=== PATIENT | female | born 1990 | race Two or more races ===

== ENCOUNTER 2016-04-12 11:52 | Emergency (ER) | payer MEDICAID, OTHER ==
[2016-04-12] MEDS ORDERED: NS 1,000 ML IV ONE (12:10)
[2016-04-12 12:13] VITALS: TEMP 98.2
[2016-04-12 12:30] LABS: COLOR YELLOW; LEUKOCYTE ESTERASE,URINE NEGATIVE (NEGATIVE); NITRITE,URINE NEGATIVE (NEGATIVE); PH,URINE 6.5 (5.0-7.5)
[2016-04-12] MEDS ORDERED: KETOROLAC 30 MG/1 ML SDV IVP ONE (12:52)
--- NOTE | 2016-04-12 12:57 | EDPHY ---
H & P Chief Complaint Nursing Narrative: Pt had sharp pain in rigth groin area while doing "[employer] " yesterday . It went away after the class . Today while at " [employer] " class had the same pain . Here now for recheck. Denies f/c Time Seen by Provider: 04/12/16 12:45 HPI/ROS: HPI: 25-year-old female presents to urgent care with chief concern 8/10 right groin pain. Onset yesterday morning while she was at [employer] dancing. By yesterday evening it had subsided and she was comfortable without any pain at bedtime. Awoke this morning with mild right groin pain lingering, went back to [employer] and pain returned. Pain is 8/10, worse with movement, without associated fever, chills, URI symptoms, shortness of breath, chest pain, abdominal pain, nausea, vomiting, diarrhea, urinary symptoms, back or flank pain. Has had an IUD x3 years. LMP 3 years ago. No recent vulvovaginal lesions , or unusual vaginal discharge. Patient at [facility] in [facility]. ROS:10 point review of systems is negative other than as stated in HPI Source: Patient Exam Limitations: No limitations - Personal History LMP (Females 10-55): IUD In Place - Medical/Surgical History Hx Asthma: No Hx Chronic Respiratory Disease: No Hx Diabetes: No Hx Cardiac Disease: No Hx Renal Disease: No Hx Cirrhosis: No Hx Alcoholism: No Hx HIV/AIDS: No Hx Splenectomy or Spleen Trauma: No Other PMH: [facility]. Tetanus UTD. Flu NONE. Surg Csecton 2012 - Family History Significant Family History: No pertinent family hx - Social History Smoking Status: Never smoked Alcohol Use: Occasionally Drug Use: None - Physical Exam Exam: Vital signs stable, reviewed by me General: Awake, alert, calm, cooperative. No acute distress. Head: Normalocephalic. Atraumatic. EENT: PERRLA. EOMI. No pallor or injection. Anicteric. No nystagmus. No injection. Neck: Supple, nontender. No lymphadenopathy. Full range of motion. No meningismus. Respiratory: Breathing unlabored. Breath sounds equal bilaterally and clear to auscultation. No adventitious sounds. CV: Chest nontender, atraumatic. Heart rate regular. No murmur, distal pulses 2+ bilaterally. Brisk cap refill all extremities. GI: Abdomen soft, nontender. No right lower quadrant tenderness. No rebound. No guarding. PositiveMarkel. Bowel sounds normoactive and positive x4 quadrants. : No suprapubic tenderness. No CVA or flank tenderness. Positive right groin pain. Neuro: Alert. Oriented x 3. Speech clear. Nonfocal cranial nerves throughout. Sensation intact all extremities. Skin: Skin warm, dry, intact. No rashes. Skin turgor normal. Extremities: Full range of motion in all 4 extremities. Strength 5+ all extremities. Constitutional: Initial Vital Signs Temperature (C) 36.8 C 04/12/16 12:09 Heart Rate 78 04/12/16 12:09 Respiratory Rate 16 04/12/16 12:09 Blood Pressure 114/72 04/12/16 12:09 O2 Sat (%) 96 04/12/16 12:09 O2 Delivery Mode Room Air Allergies/Adverse Reactions: No Known Allergies Allergy (Verified 04/12/16 12:13) Home Medications: Medication Instructions Recorded Miscellaneous Medical Supply [NO 01/17/13 HOME MEDS] Medical Decision Making - Diagnostics Imaging: Ultrasound Pelvis Complete (Transabdominal and Endovaginal) Including Duplex/ Doppler Imaging History: Right lower quadrant pain. Impression: 1. IUD appears in good position. 2. Normal right ovary. 3. Left ovarian 2.2 cm simple cyst or dominant follicle. 4. No ovarian torsion or significant free fluid. Final report concurs with initial preliminary interpretation. Dictated By: Sivakumar Coronado Ultrasound Abdominal Limited at 1308 Hours History: Right lower quadrant pain, possible appendicitis. Impression: No indirect sonographic evidence for appendicitis. Final report concurs with initial preliminary interpretation. Dictated By: Sivakumar Coronado ED Course/Re-evaluation: 1250: Nontoxic afebrile 25-year-old presents to urgent care with right groin pain that onset suddenly while she was in 0 class. She is afebrile. Vitals are stable. Urinalysis is negative for evidence of UTI. Urine preg negative. Has an IUD in place. Labs are pending. Abdomen limited and pelvic complete ultrasound are pending. Given 30 mg IV Toradol for pain. 1340: Ultrasound shows normal right ovary, no torsion. Appendix not visualized however there is no free fluid in the pelvis. Prominent Left ovarian cyst or follicle present. This patient's white count is 9700. Metabolic panel unremarkable. Urinalysis negative. Urine preg negative. Her symptoms are suspicious for right groin strain versus appendicitis. Pain is localized to the right groin. Will have her recheck either here or with primary care tomorrow. This has been discussed with her. She verbalizes understanding. She has been counseled regarding signs appendicitis and need for prompt return here or to emergency department should her symptoms worsen in any way, should she develop a fever, vomiting, or other concerning symptoms. Differential Diagnosis: Differential diagnosis includes but is not limited to musculoskeletal groin strain , ovarian torsion, appendicitis, UTI, IUD malfunction - Data Points Laboratory Results: Laboratory Results 04/12/16 13:05 04/12/16 13:05 04/12/16 04/12/16 13:05 12:20 WBC 9.77 H 10^3/uL (3.80-9.50) RBC 4.56 10^6/uL (4.18-5.33) Hgb 13.8 g/dL (12.6-16.3) Hct 41.1 % (38.0-47.0) MCV 90.1 fL (81.5-99.8) MCH 30.3 pg (27.9-34.1) MCHC 33.6 g/dL (32.4-36.7) RDW 14.0 % (11.5-15.2) Plt Count 269 10^3/uL (150-400) MPV 10.0 fL (8.7-11.7) Neut % (Auto) 62.6 % (39.3-74.2) Lymph % (Auto) 28.6 % (15.0-45.0) [place] % (Auto) 6.4 % (4.5-13.0) Eos % (Auto) 1.5 % (0.6-7.6) Baso % (Auto) 0.4 % (0.3-1.7) Nucleat RBC Rel Count 0.0 % (0.0-0.2) Absolute Neuts (auto) 6.11 10^3/uL (1.70-6.50) Absolute Lymphs (auto) 2.79 10^3/uL (1.00-3.00) Absolute Monos (auto) 0.63 10^3/uL (0.30-0.80) Absolute Eos (auto) 0.15 10^3/uL (0.03-0.40) Absolute Basos (auto) 0.04 10^3/uL (0.02-0.10) Absolute Nucleated RBC 0.00 10^3/uL (0-0.01) Immature Gran % 0.5 % (0.0-1.1) Immature Gran # 0.05 10^3/uL (0.00-0.10) Sodium 139 mEq/L (134-144) Potassium 4.0 mEq/L (3.5-5.2) Chloride 99 mEq/L (97-110) Carbon Dioxide 27 mEq/l (22-31) Anion Gap 13 mEq/L (8-16) BUN 10 mg/dL (7-23) Creatinine 0.7 mg/dL (0.6-1.0) Estimated GFR > 60 Glucose 87 mg/dL (70-100) Calcium 9.3 mg/dL (8.5-10.4) Urine Color YELLOW Urine Appearance CLEAR Urine pH 6.5 (5.0-7.5) Ur Specific [place] 1.010 (1.002-1.030) Urine Protein NEGATIVE (NEGATIVE) Urine Ketones NEGATIVE (NEGATIVE) Urine Blood NEGATIVE (NEGATIVE) Urine Nitrate NEGATIVE (NEGATIVE) Urine Bilirubin NEGATIVE (NEGATIVE) Urine Urobilinogen 0.2 EU (0.2-1.0) Ur Leukocyte Esterase NEGATIVE (NEGATIVE) Ur Culture Indicated? NOT INDICATED (NI) Urine Glucose NEGATIVE (NEGATIVE) Urine Test NEGATIVE Medications Given: Discontinued Medications Sodium Chloride (Ns) 1,000 mls @ 0 mls/hr IV ONCE ONE PRN Reason: Wide Open Stop: 04/12/16 12:11 Last Admin: 04/12/16 13:41 Dose: 1,000 mls Ketorolac Tromethamine (Toradol) 30 mg IVP EDNOW ONE Stop: 04/12/16 12:53 Last Admin: 04/12/16 13:41 Dose: 30 mg Departure - Departure Disposition: Home, Routine, Self-Care Clinical Impression: Right groin pain Condition: Good Instructions: Groin Pain (ED) Additional Instructions: Plan: As discussed, your ultrasound shows a normal right ovary. There is evidence of possible left ovarian cyst versus prominent follicle. IUD is in place. It seems likely your symptoms do represent a musculoskeletal strain of the right groin however appendicitis cannot entirely be excluded without a CT scan. At this time, we will discharge to home, and have a follow-up with primary care tomorrow without fail for recheck. If he cannot get in to see her primary care provider tomorrow, return here for recheck without fail. You may use 600 mg of ibuprofen every 6 hours for fever, inflammation, or pain. Always take ibuprofen with food and stay well hydrated while taking. Do not exceed the maximum allowable dose in a 24 hour period which is 2400 mg. You may use 1000 mg of Tylenol every 8 hours. This may be staggered with the ibuprofen. Do not exceed the maximum dose in a 24 hour period which is 3 GM or 3000 mg. Referrals: IN STATE,. [Primary Care Provider] - As per Instructions [facility] [Outside] - As per Instructions
[2016-04-12 13:07] LABS: % IMMATURE GRANULYOCYTES 0.5 % (0.0-1.1); ABSOLUTE IMMATURE GRANULOCYTES 0.05 10^3/uL (0.00-0.10); ADD DIFF? NO; ADD MORPH? NO; ADD SCAN? NO; ATYPICAL LYMPHOCYTE FLAG 50 (0-99); FRAGMENT RBC FLAG 0 (0-99); HEMATOCRIT 41.1 % (38.0-47.0); HEMOGLOBIN 13.8 g/dL (12.6-16.3); LEFT SHIFT FLG 0 (0-99); LIPEMIA HEMOLYSIS FLAG 80 (0-99); MEAN CELL HEMOGLOBIN 30.3 pg (27.9-34.1); MEAN CELL HEMOGLOBIN CONCENTR. 33.6 g/dL (32.4-36.7); MEAN CELL VOLUME 90.1 fL (81.5-99.8); PLATELET CLUMPS FLAG 0 (0-99); PLATELET COUNT 269 10^3/uL (150-400); RED BLOOD CELL COUNT 4.56 10^6/uL (4.18-5.33)
[2016-04-12 13:31] LABS: ANION GAP 13 mEq/L (8-16); CALCIUM 9.3 mg/dL (8.5-10.4); CARBON DIOXIDE 27 mEq/l (22-31); CHLORIDE 99 mEq/L (97-110); CREATININE 0.7 mg/dL (0.6-1.0); GLOMERULAR FILTRATION RATE > 60; GLUCOSE 87 mg/dL (70-100); SODIUM 139 mEq/L (134-144)
--- NOTE | 2016-04-12 13:36 | US ---
Ultrasound Abdominal Limited at 1308 Hours History: Right lower quadrant pain, possible appendicitis. Technique: Graded compression with a high-frequency linear transducer. Findings: A normal appendix is not identified. There is no free fluid or loculated fluid. Only normal loops of bowel are identified. Impression: No indirect sonographic evidence for appendicitis. Findings discussed with emergency department certified nurse practitioner, Yasemin Hay, at 1333 hours , today. Final report concurs with initial preliminary interpretation.
--- NOTE | 2016-04-12 13:38 | US ---
Ultrasound Pelvis Complete (Transabdominal and Endovaginal) Including Duplex/Doppler Imaging History: Right lower quadrant pain. Technique: Transabdominal and endovaginal ultrasound images were obtained. Endovaginal images obtain ed for better evaluation of the uterine myometrium and adnexa. Duplex/Doppler imaging of adnexa. Findings: Uterus measures 7 x 4 x 5 cm. Endometrial thickness is 4 mm. No definite uterine leiomyoma ta. Right ovary measures 2.4 x 2.2 x 2 cm. Left ovary measures 3.4 x 2.3 x 3.1 cm. IUD appears in good po sition. Left ovarian 2.2 x 2.1 x 1.7 cm simple cyst or dominant follicle. No evidence of right adnexa l lesions. No significant free fluid in the pelvis. Color Doppler flow to both ovaries without torsi on. Impression: 1. IUD appears in good position. 2. Normal right ovary. 3. Left ovarian 2.2 cm simple cyst or dominant follicle. 4. No ovarian torsion or significant free fluid. Findings discussed with emergency department certified nurse practitioner, Yasemin Hay, at 1334 hours , today. Final report concurs with initial preliminary interpretation.
[2016-04-12 14:08] VITALS: BP 122/74; PULSE 79; RESP 18; O2SAT 97
--- NOTE | 2016-04-12 14:59 | UCPHY ---
H & P Time Seen by Provider: 04/12/16 12:45 Patient Type: Established HPI/ROS: H & P Chief Complaint Nursing Narrative: Pt had sharp pain in rigth groin area while doing "[employer] " yesterday . It went away after the class . Today while at " [employer] " class had the same pain . Here now for recheck. Denies f/c Time Seen by Provider: 04/12/16 12:45 HPI/ROS: HPI: 25-year-old female presents to urgent care with chief concern 8/10 right groin pain. Onset yesterday morning while she was at [employer] dancing. By yesterday evening it had subsided and she was comfortable without any pain at bedtime. Awoke this morning with mild right groin pain lingering, went back to [employer] class and pain returned. Pain is 8/10, worse with movement, without associated fever, chills, URI symptoms, shortness of breath, chest pain, abdominal pain, nausea, vomiting, diarrhea, urinary symptoms, back or flank pain. Has had an IUD x3 years. LMP 3 years ago. No recent vulvovaginal lesions , or unusual vaginal discharge. Patient at [facility] in [facility]. ROS:10 point review of systems is negative other than as stated in HPI Source: Patient Exam Limitations: No limitations - Personal History LMP (Females 10-55): IUD In Place - Medical/Surgical History Hx Asthma: No Hx Chronic Respiratory Disease: No Hx Diabetes: No Hx Cardiac Disease: No Hx Renal Disease: No Hx Cirrhosis: No Hx Alcoholism: No Hx HIV/AIDS: No Hx Splenectomy or Spleen Trauma: No Other PMH: [facility]. Tetanus UTD. Flu NONE. Surg Csect[place] 2012 - Family History Significant Family History: No pertinent family hx - Social History Smoking Status: Never smoked Alcohol Use: Occasionally Drug Use: None - Physical Exam Exam: Vital signs stable, reviewed by me General: Awake, alert, calm, cooperative. No acute distress. Head: Normalocephalic. Atraumatic. EENT: PERRLA. EOMI. No pallor or injection. Anicteric. No nystagmus. No injection. Neck: Supple, nontender. No lymphadenopathy. Full range of motion. No meningismus. Respiratory: Breathing unlabored. Breath sounds equal bilaterally and clear to auscultation. No adventitious sounds. CV: Chest nontender, atraumatic. Heart rate regular. No murmur, distal pulses 2+ bilaterally. Brisk cap refill all extremities. GI: Abdomen soft, nontender. No right lower quadrant tenderness. No rebound. No guarding. PositiveMarkel. Bowel sounds normoactive and positive x4 quadrants. : No suprapubic tenderness. No CVA or flank tenderness. Positive right groin pain. Neuro: Alert. Oriented x 3. Speech clear. Nonfocal cranial nerves throughout. Sensation intact all extremities. Skin: Skin warm, dry, intact. No rashes. Skin turgor normal. Extremities: Full range of motion in all 4 extremities. Strength 5+ all extremities. Constitutional: Initial Vital Signs Temperature (C) 36.8 C 04/12/16 12:09 Heart Rate 78 04/12/16 12:09 Respiratory Rate 16 04/12/16 12:09 Blood Pressure 114/72 04/12/16 12:09 O2 Sat (%) 96 04/12/16 12:09 O2 Delivery Mode Room Air Allergies/Adverse Reactions: No Known Allergies Allergy (Verified 04/12/16 12:13) Home Medications: Medication Instructions Recorded Miscellaneous Medical Supply [NO 01/17/13 HOME MEDS] Medical Decision Making - Diagnostics Imaging: Ultrasound Pelvis Complete (Transabdominal and Endovaginal) Including Duplex/ Doppler Imaging History: Right lower quadrant pain. Impression: 1. IUD appears in good position. 2. Normal right ovary. 3. Left ovarian 2.2 cm simple cyst or dominant follicle. 4. No ovarian torsion or significant free fluid. Final report concurs with initial preliminary interpretation. Dictated By: Sivakumar Coronado Ultrasound Abdominal Limited at 1308 Hours History: Right lower quadrant pain, possible appendicitis. Impression: No indirect sonographic evidence for appendicitis. Final report concurs with initial preliminary interpretation. Dictated By: Sivakumar Coronado ED Course/Re-evaluation: 1250: Nontoxic afebrile 25-year-old presents to urgent care with right groin pain that onset suddenly while she was in 0 class. She is afebrile. Vitals are stable. Urinalysis is negative for evidence of UTI. Urine preg negative. Has an IUD in place. Labs are pending. Abdomen limited and pelvic complete ultrasound are pending. Given 30 mg IV Toradol for pain. 1340: Ultrasound shows normal right ovary, no torsion. Appendix not visualized however there is no free fluid in the pelvis. Prominent Left ovarian cyst or follicle present. This patient's white count is 9700. Metabolic panel unremarkable. Urinalysis negative. Urine preg negative. Her symptoms are suspicious for right groin strain versus appendicitis. Pain is localized to the right groin. Will have her recheck either here or with primary care tomorrow. This has been discussed with her. She verbalizes understanding. She has been counseled regarding signs appendicitis and need for prompt return here or to emergency department should her symptoms worsen in any way, should she develop a fever, vomiting, or other concerning symptoms. Differential Diagnosis: Differential diagnosis includes but is not limited to musculoskeletal groin strain , ovarian torsion, appendicitis, UTI, IUD malfunction - Data Points Laboratory Results: Laboratory Results 04/12/16 13:05 [Image 1] 04/12/16 13:05 [Image 1] 04/12/16 04/12/16 13:05 12:20 WBC 9.77 H 10^3/uL (3.80-9.50) RBC 4.56 10^6/uL (4.18-5.33) Hgb 13.8 g/dL (12.6-16.3) Hct 41.1 % (38.0-47.0) MCV 90.1 fL (81.5-99.8) MCH 30.3 pg (27.9-34.1) MCHC 33.6 g/dL (32.4-36.7) RDW 14.0 % (11.5-15.2) Plt Count 269 10^3/uL (150-400) MPV 10.0 fL (8.7-11.7) Neut % (Auto) 62.6 % (39.3-74.2) Lymph % (Auto) 28.6 % (15.0-45.0) [place] % (Auto) 6.4 % (4.5-13.0) Eos % (Auto) 1.5 % (0.6-7.6) Baso % (Auto) 0.4 % (0.3-1.7) Nucleat RBC Rel Count 0.0 % (0.0-0.2) Absolute Neuts (auto) 6.11 10^3/uL (1.70-6.50) Absolute Lymphs (auto) 2.79 10^3/uL (1.00-3.00) Absolute Monos (auto) 0.63 10^3/uL (0.30-0.80) Absolute Eos (auto) 0.15 10^3/uL (0.03-0.40) Absolute Basos (auto) 0.04 10^3/uL (0.02-0.10) Absolute Nucleated RBC 0.00 10^3/uL (0-0.01) Immature Gran % 0.5 % (0.0-1.1) Immature Gran # 0.05 10^3/uL (0.00-0.10) Sodium 139 mEq/L (134-144) Potassium 4.0 mEq/L (3.5-5.2) Chloride 99 mEq/L (97-110) Carbon Dioxide 27 mEq/l (22-31) Anion Gap 13 mEq/L (8-16) BUN 10 mg/dL (7-23) Creatinine 0.7 mg/dL (0.6-1.0) Estimated GFR > 60 Glucose 87 mg/dL (70-100) Calcium 9.3 mg/dL (8.5-10.4) Urine Color YELLOW Urine Appearance CLEAR Urine pH 6.5 (5.0-7.5) Ur Specific [place] 1.010 (1.002-1.030) Urine Protein NEGATIVE (NEGATIVE) Urine Ketones NEGATIVE (NEGATIVE) Urine Blood NEGATIVE (NEGATIVE) Urine Nitrate NEGATIVE (NEGATIVE) Urine Bilirubin NEGATIVE (NEGATIVE) Urine Urobilinogen 0.2 EU (0.2-1.0) Ur Leukocyte Esterase NEGATIVE (NEGATIVE) Ur Culture Indicated? NOT INDICATED (NI) Urine Glucose NEGATIVE (NEGATIVE) Urine Test NEGATIVE Medications Given: Discontinued Medications Sodium Chloride (Ns) 1,000 mls @ 0 mls/hr IV ONCE ONE PRN Reason: Wide Open Stop: 04/12/16 12:11 Last Admin: 04/12/16 13:41 Dose: 1,000 mls Ketorolac Tromethamine (Toradol) 30 mg IVP EDNOW ONE Stop: 04/12/16 12:53 Last Admin: 04/12/16 13:41 Dose: 30 mg Departure - Departure Disposition: Home, Routine, Self-Care Clinical Impression: Right groin pain Condition: Good Instructions: Groin Pain (ED) Additional Instructions: Plan: As discussed, your ultrasound shows a normal right ovary. There is evidence of possible left ovarian cyst versus prominent follicle. IUD is in place. It seems likely your symptoms do represent a musculoskeletal strain of the right groin however appendicitis cannot entirely be excluded without a CT scan. At this time, we will discharge to home, and have a follow-up with primary care tomorrow without fail for recheck. If he cannot get in to see her primary care provider tomorrow, return here for recheck without fail. You may use 600 mg of ibuprofen every 6 hours for fever, inflammation, or pain. Always take ibuprofen with food and stay well hydrated while taking. Do not exceed the maximum allowable dose in a 24 hour period which is 2400 mg. You may use 1000 mg of Tylenol every 8 hours. This may be staggered with the ibuprofen. Do not exceed the maximum dose in a 24 hour period which is 3 GM or 3000 mg. Referrals: IN STATE,. [Primary Care Provider] - As per Instructions [facility] [Outside] - As per Instructions Smoking Status: Never smoked Constitutional: Initial Vital Signs Temperature (C) 36.8 C 04/12/16 12:09 Heart Rate 78 04/12/16 12:09 Respiratory Rate 16 04/12/16 12:09 Blood Pressure 114/72 04/12/16 12:09 O2 Sat (%) 96 04/12/16 12:09 O2 Delivery Mode Room Air Allergies/Adverse Reactions: No Known Allergies Allergy (Verified 04/12/16 12:13) Home Medications: Medication Instructions Recorded Miscellaneous Medical Supply [NO 01/17/13 HOME MEDS] Medical Decision Making - Data Points Laboratory Results: Laboratory Results 04/12/16 13:05 04/12/16 13:05 04/12/16 04/12/16 13:05 12:20 WBC 9.77 H 10^3/uL (3.80-9.50) RBC 4.56 10^6/uL (4.18-5.33) Hgb 13.8 g/dL (12.6-16.3) Hct 41.1 % (38.0-47.0) MCV 90.1 fL (81.5-99.8) MCH 30.3 pg (27.9-34.1) MCHC 33.6 g/dL (32.4-36.7) RDW 14.0 % (11.5-15.2) Plt Count 269 10^3/uL (150-400) MPV 10.0 fL (8.7-11.7) Neut % (Auto) 62.6 % (39.3-74.2) Lymph % (Auto) 28.6 % (15.0-45.0) [place] % (Auto) 6.4 % (4.5-13.0) Eos % (Auto) 1.5 % (0.6-7.6) Baso % (Auto) 0.4 % (0.3-1.7) Nucleat RBC Rel Count 0.0 % (0.0-0.2) Absolute Neuts (auto) 6.11 10^3/uL (1.70-6.50) Absolute Lymphs (auto) 2.79 10^3/uL (1.00-3.00) Absolute Monos (auto) 0.63 10^3/uL (0.30-0.80) Absolute Eos (auto) 0.15 10^3/uL (0.03-0.40) Absolute Basos (auto) 0.04 10^3/uL (0.02-0.10) Absolute Nucleated RBC 0.00 10^3/uL (0-0.01) Immature Gran % 0.5 % (0.0-1.1) Immature Gran # 0.05 10^3/uL (0.00-0.10) Sodium 139 mEq/L (134-144) Potassium 4.0 mEq/L (3.5-5.2) Chloride 99 mEq/L (97-110) Carbon Dioxide 27 mEq/l (22-31) Anion Gap 13 mEq/L (8-16) BUN 10 mg/dL (7-23) Creatinine 0.7 mg/dL (0.6-1.0) Estimated GFR > 60 Glucose 87 mg/dL (70-100) Calcium 9.3 mg/dL (8.5-10.4) Urine Color YELLOW Urine Appearance CLEAR Urine pH 6.5 (5.0-7.5) Ur Specific [place] 1.010 (1.002-1.030) Urine Protein NEGATIVE (NEGATIVE) Urine Ketones NEGATIVE (NEGATIVE) Urine Blood NEGATIVE (NEGATIVE) Urine Nitrate NEGATIVE (NEGATIVE) Urine Bilirubin NEGATIVE (NEGATIVE) Urine Urobilinogen 0.2 EU (0.2-1.0) Ur Leukocyte Esterase NEGATIVE (NEGATIVE) Ur Culture Indicated? NOT INDICATED (NI) Urine Glucose NEGATIVE (NEGATIVE) Urine Test NEGATIVE Medications Given: Discontinued Medications Sodium Chloride (Ns) 1,000 mls @ 0 mls/hr IV ONCE ONE PRN Reason: Wide Open Stop: 04/12/16 12:11 Last Admin: 04/12/16 13:41 Dose: 1,000 mls Ketorolac Tromethamine (Toradol) 30 mg IVP EDNOW ONE Stop: 04/12/16 12:53 Last Admin: 04/12/16 13:41 Dose: 30 mg Departure - Departure Disposition: Home, Routine, Self-Care Clinical Impression: Right groin pain Condition: Good Instructions: Groin Pain (ED) Additional Instructions: Plan: As discussed, your ultrasound shows a normal right ovary. There is evidence of possible left ovarian cyst versus prominent follicle. IUD is in place. It seems likely your symptoms do represent a musculoskeletal strain of the right groin however appendicitis cannot entirely be excluded without a CT scan. At this time, we will discharge to home, and have a follow-up with primary care tomorrow without fail for recheck. If he cannot get in to see her primary care provider tomorrow, return here for recheck without fail. You may use 600 mg of ibuprofen every 6 hours for fever, inflammation, or pain. Always take ibuprofen with food and stay well hydrated while taking. Do not exceed the maximum allowable dose in a 24 hour period which is 2400 mg. You may use 1000 mg of Tylenol every 8 hours. This may be staggered with the ibuprofen. Do not exceed the maximum dose in a 24 hour period which is 3 GM or 3000 mg. Referrals: [facility] [place] [Outside] - As per Instructions IN STATE,. [Primary Care Provider] - As per Instructions - PQRS PQRS Measurement: NA
== END 2016-04-12 14:12 | disposition home or self-care (01) ==
LOC: CED 11:52
DX: R10.30 Lower abdominal pain, unspecified (principal); N83.202 Unspecified ovarian cyst, left side
CPT/HCPCS: 76705-PO; 76856-PO; 80048-PO; 81003-PO; 81025-PO; 85025-PO; 96361-PO; 96374-PO; G0463-PO; J1885

== ENCOUNTER 2016-05-14 08:29 | Emergency (ER) | payer MEDICAID ==
[2016-05-14 08:49] VITALS: RESP 16; O2SAT 96
[2016-05-14] MEDS ORDERED: NS 1,000 ML IV ONE (09:06)
--- NOTE | 2016-05-14 09:09 | UCPHY ---
H & P Patient Type: Established Chief Complaint Nursing Narrative: upper abdominal pain 2 days, patient reports scant blood in vomitus, dark stool this am Time Seen by Provider: 05/14/16 08:37 HPI/ROS: CHIEF COMPLAINT: Upper abdominal pain HISTORY OF PRESENT ILLNESS: 25-year-old female notes that 36 hours ago she went out with friends and had 3 or 4 years. She went to bed feeling well. She woke up yesterday morning feeling well, but a little loss of appetite. She went out to breakfast with her friends about noon and ate about a half of a burrito. Approximately half an hour later she started having, upper abdominal abdominal pain has been steady and constant ever since, some 20 hours ago. She does recall having acid peptic disease some 4 5 years ago. She tested positive on blood test for H pylori. However there was no scoping procedure done. She did recall vaguely completing a course of antibiotics followed by 3- 6 months worth of Prilosec and symptomatic improvement. No family history of gallbladder disease or gallstones. She did have 3-4 beers on Saturday night, some 12 hours prior to the onset of this pain however it was not a binge drinking episode. P: Did not get better when she took a meal yesterday which she tried as of therapeutic maneuver. No appetite Q: Achiness R: Right upper quadrant, midline, no radiation to the back S: Moderate T: Slow in onset yesterday at noon lasting 20 hours, still there presently. No prior REVIEW OF SYSTEMS: Constitutional: No fever, no chills. Eyes: No diplopia. ENT: No sore throat. Cardiovascular: No chest pain, no palpitations. Respiratory: No cough, shortness of breath, or wheezing. Gastrointestinal: See above Genitourinary: No hematuria or frequency. Musculoskeletal: No back pain. Skin: No rashes. Neurological: No headache. 10 point ROS otherwise negative Source: Patient Exam Limitations: No limitations - Personal History LMP (Females 10-55): IUD In Place - Medical/Surgical History Hx Asthma: No Hx Chronic Respiratory Disease: No Hx Diabetes: No Hx Cardiac Disease: No Hx Renal Disease: No Hx Cirrhosis: No Hx Alcoholism: No Hx HIV/AIDS: No Hx Splenectomy or Spleen Trauma: No Other PMH: H pylori 1999, empiric diagnosis of peptic ulcer disease without prior scoping. Tetanus UTD. Surg Csecton 2013 - Family History Significant Family History: No pertinent family hx - Social History Smoking Status: Never smoked Alcohol Use: Occasionally Drug Use: None - Physical Exam Exam: General Appearance: Alert, no distress. Afebrile. Normal phonation. No respiratory distress. Eyes: Pupils equal and round no pallor or injection. No icterus ENT, Mouth: Mucous membranes slightly dry. Pharynx without erythema or exudate. TM Clear. Neck: No adenopathy. Supple. No JVD. Trachea in midline. Respiratory: There are no retractions, lungs are clear to auscultation. Cardiovascular: Regular rate and rhythm, without Abdomen: Soft tender in the right upper quadrant but more so in the midline. No Genao sign per. No masses, bowel sounds normal. No rebound or guarding no CVA tenderness Neurological: Ox3. No motor weakness. Sensation intact. Skin: Warm and dry, no rashes. Musculoskeletal: No joint swelling. Extremities: No edema. Psychiatric: Normal affect Constitutional: Initial Vital Signs Temperature (C) 36.9 C 05/14/16 08:45 Heart Rate 70 05/14/16 08:45 Respiratory Rate 16 05/14/16 08:45 Blood Pressure 129/87 H 05/14/16 08:45 O2 Sat (%) 96 05/14/16 08:45 O2 Delivery Mode Room Air Allergies/Adverse Reactions: No Known Allergies Allergy (Verified 05/14/16 08:49) Home Medications: Medication Instructions Recorded Hydrocodone/APAP 5/325 [[place] 1 tab PO Q4 #10 tab 05/14/16 5/325 (*)] Omeprazole 20 mg PO DAILY #21 capsule. 05/14/16 Ondansetron Odt [Zofran Odt 4 mg 8 mg PO TID PRN #4 tab 05/14/16 (*)] Medical Decision Making ED Course/Re-evaluation: Mucous membranes are slightly dry she has not had p. o. intake of significant injury for about 36 hours that she was given a L of fluid. Ribbit drug monitoring checked. While her name is in the system there is no medication in past 1 year Laboratory studies were : CBC slightly elevated Normal electrolytes Normal LFTs Normal lipase. Differential Diagnosis: Differential diagnosis includes, but is not limited to: Gastroenteritis, dehydration, diverticulitis, hepatitis, cholecystitis, appendicitis, gastritis, mesenteric adenitis, food poisoning, bacterial dysentery View of the negative liver function tests this time as well as normal lipase I do not believe it is necessary to pursue an ultrasound at this point. We would go ahead with a presumptive diagnosis of acid peptic disease with consideration of distal diagnostic testing if she does not improve - Data Points Laboratory Results: Laboratory Results 05/14/16 09:30 05/14/16 09:30 05/14/16 05/14/16 09:30 09:30 WBC 13.10 10^3/uL H 10^3/uL (3.80-9.50) RBC 4.26 10^6/uL 10^6/uL (4.18-5.33) Hgb 13.0 g/dL g/dL (12.6-16.3) Hct 38.4 % % (38.0-47.0) MCV 90.1 fL fL (81.5-99.8) MCH 30.5 pg pg (27.9-34.1) MCHC 33.9 g/dL g/dL (32.4-36.7) RDW 14.4 % % (11.5-15.2) Plt Count 271 10^3/uL 10^3/uL (150-400) MPV 10.5 fL fL (8.7-11.7) Neut % (Auto) 74.9 % H % (39.3-74.2) Lymph % (Auto) 18.2 % % (15.0-45.0) [place] % (Auto) 5.6 % % (4.5-13.0) Eos % (Auto) 0.5 % L % (0.6-7.6) Baso % (Auto) 0.3 % % (0.3-1.7) Nucleat RBC Rel Count 0.0 % % (0.0-0.2) Absolute Neuts (auto) 9.80 10^3/uL H 10^3/uL (1.70-6.50) Absolute Lymphs (auto) 2.39 10^3/uL 10^3/uL (1.00-3.00) Absolute Monos (auto) 0.74 10^3/uL 10^3/uL (0.30-0.80) Absolute Eos (auto) 0.06 10^3/uL 10^3/uL (0.03-0.40) Absolute Basos (auto) 0.04 10^3/uL 10^3/uL (0.02-0.10) Absolute Nucleated RBC 0.00 10^3/uL 10^3/uL (0-0.01) Immature Gran % 0.5 % % (0.0-1.1) Immature Gran # 0.07 10^3/uL 10^3/uL (0.00-0.10) Sodium 140 mEq/L mEq/L (134-144) Potassium 3.7 mEq/L mEq/L (3.5-5.2) Chloride 102 mEq/L mEq/L (97-110) Carbon Dioxide 24 mEq/l mEq/l (22-31) Anion Gap 14 mEq/L mEq/L (8-16) BUN 7 mg/dL mg/dL (7-23) Creatinine 0.4 mg/dL L mg/dL (0.6-1.0) Estimated GFR > 60 Glucose 108 mg/dL H mg/dL (70-100) Calcium 9.1 mg/dL mg/dL (8.5-10.4) Total Bilirubin 0.6 mg/dL mg/dL (0.1-1.4) Conjugated Bilirubin 0.3 mg/dL mg/dL (0.0-0.5) Unconjugated Bilirubin 0.3 mg/dL mg/dL (0.0-1.1) AST 15 IU/L IU/L (14-46) ALT 28 IU/L IU/L (9-52) Alkaline Phosphatase 71 IU/L IU/L (38-126) Total Protein 6.8 g/dL g/dL (6.3-8.2) Albumin 3.6 g/dL g/dL (3.5-5.0) Lipase 68.0 IU/L IU/L (23-300) Medications Given: Discontinued Medications Sodium Chloride (Ns) 1,000 mls @ 0 mls/hr IV ONCE ONE PRN Reason: Wide Open Stop: 05/14/16 09:07 Last Admin: 05/14/16 09:15 Dose: 1,000 mls Ondansetron HCl (Zofran) 8 mg IVP ONCE ONE Stop: 05/14/16 09:45 Last Admin: 05/14/16 09:57 Dose: 8 mg Departure - Departure Disposition: Home, Routine, Self-Care Clinical Impression: Acid peptic disease Abdominal pain Qualifiers: Abdominal location: upper abdomen, unspecified Qualified Code(s): R10.10 - Upper abdominal pain, unspecified Condition: Good Instructions: Abdominal Pain (ED) Additional Instructions: If still having nausea tomorrow despite the Zofran need to come back. Your to start a liquid diet and then advanced over the next 24 hours. None the eat 4 hours before bedtime. Make the evening meal one of your smaller ones for the day Avoid any caffeine such as coffee Tea or chocolate. this week take the Prilosec at 40 mg daily for 7 days thereafter take 20 mg daily for the next 2 weeks. take Prilosec on empty stomach as it is more effective For the pain, take either Tylenol or [place] -not both together follow-up with family doctor in the next 3-6 days. Referrals: NONE *PRIMARY CARE P,. [Primary Care Provider] - As per Instructions Prescriptions: Hydrocodone/APAP 5/325 [[place] 5/325 (*)] 1 tab PO Q4 #10 tab Omeprazole 20 mg PO DAILY #21 capsule. Ondansetron Odt [Zofran Odt 4 mg (*)] 8 mg PO TID PRN #4 tab PRN Reason: Nausea/Vomiting, Can'T Take Po - PQRS PQRS Measurement: Not applicable
[2016-05-14 09:39] LABS: % IMMATURE GRANULYOCYTES 0.5 % (0.0-1.1); ABSOLUTE IMMATURE GRANULOCYTES 0.07 10^3/uL (0.00-0.10); ADD DIFF? NO; ADD MORPH? NO; ADD SCAN? NO; ATYPICAL LYMPHOCYTE FLAG 0 (0-99); FRAGMENT RBC FLAG 0 (0-99); HEMATOCRIT 38.4 % (38.0-47.0); LEFT SHIFT FLG 0 (0-99); LIPEMIA HEMOLYSIS FLAG 90 (0-99); MEAN CELL HEMOGLOBIN 30.5 pg (27.9-34.1); MEAN CELL HEMOGLOBIN CONCENTR. 33.9 g/dL (32.4-36.7); MEAN CELL VOLUME 90.1 fL (81.5-99.8); MEAN PLATELET VOLUME 10.5 fL (8.7-11.7); PLATELET CLUMPS FLAG 0 (0-99); PLATELET COUNT 271 10^3/uL (150-400); RED BLOOD CELL COUNT 4.26 10^6/uL (4.18-5.33); RED CELL DISTRIBUTION WIDTH 14.4 % (11.5-15.2)
[2016-05-14] MEDS ORDERED: ONDANSETRON 4 MG/2 ML VIAL IVP ONE (09:44)
[2016-05-14 09:57] LABS: ALANINE AMINOTRANSFERASE 28 IU/L (9-52); ALBUMIN 3.6 g/dL (3.5-5.0); ALKALINE PHOSPHATASE 71 IU/L (38-126); ANION GAP 14 mEq/L (8-16); ASPARTATE AMINOTRANSFERASE 15 IU/L (14-46); BILIRUBIN,TOTAL 0.6 mg/dL (0.1-1.4); BILIRUBIN-CONJUGATED 0.3 mg/dL (0.0-0.5); BILIRUBIN-UNCONJUGATED 0.3 mg/dL (0.0-1.1); CALCIUM 9.1 mg/dL (8.5-10.4); CARBON DIOXIDE 24 mEq/l (22-31); CHLORIDE 102 mEq/L (97-110); CREATININE 0.4 mg/dL (0.6-1.0); GLOMERULAR FILTRATION RATE > 60; GLUCOSE 108 mg/dL (70-100); POTASSIUM 3.7 mEq/L (3.5-5.2); SODIUM 140 mEq/L (134-144); TOTAL PROTEIN 6.8 g/dL (6.3-8.2)
[2016-05-14 11:01] VITALS: BP 121/78; PULSE 58; TEMP 98.6
== END 2016-05-14 11:01 | disposition home or self-care (01) ==
LOC: CED 08:29
DX: R10.10 Upper abdominal pain, unspecified (principal)
CPT/HCPCS: 80048-PO; 80076-PO; 83690-PO; 85025-PO; 96361-PO; 96374-PO; 99215-PO; G0463-PO; J2405

== ENCOUNTER 2016-07-12 11:23 | Emergency (ER) | payer MEDICAID ==
[2016-07-12] MEDS ORDERED: NS 1,000 ML IV ONE (11:36)
--- NOTE | 2016-07-12 11:55 | EDPHY ---
H & P Stated Complaint: Dizzy and lightheaded since Sat./Sun,SOB,dry cough Time Seen by Provider: 07/12/16 11:34 HPI/ROS: CHIEF COMPLAINT: Lightheaded, dizzy, short of breath, nauseous HISTORY OF PRESENT ILLNESS: 25-year-old female presents reporting that for the last 6 days she has had a generalized feeling of lightheadedness, like she might faint, complaining of dizziness, and shortness of breath. Also reports nausea with 1 episode of vomiting. Patient was out with friends on Saturday night, with alcohol intake. She woke on Saturday feeling slightly lightheaded with a very mild headache. Thought she was a bit hung over. However her symptoms of nausea, lightheadedness, shortness of breath and intermittent palpitations have continued. No chest pain. No sputum production. No fever. No sore throat. No diarrhea. No vaginal bleeding. No syncope Patient states she had a cold with a fever and sputum production 2 weeks ago, and a mild cough has persisted. She has a Mirena IUD and reports unprotected intercourse 1 month ago which concerned her for sexual transmitted disease. [facility] was seen at [facility] with negative tests for STDs.. REVIEW OF SYSTEMS: Aside from elements discussed in the HPI, a comprehensive 10-point review of systems was reviewed and is negative. PAST MEDICAL HISTORY: Denies. Occasional mild anxiety. SOCIAL HISTORY: Nonsmoker. Positive alcohol. No drug use. VITAL SIGNS Reviewed by me. GENERAL: Well-developed, well-nourished, resting comfortably in no respiratory distress. HEENT: Atraumatic. Eyes: No icterus, no injection. Mouth: moist mucous membranes. No erythema or lesions. Neck: supple with no adenopathy. LUNGS: Clear to auscultation bilaterally, no wheezes, rhonchi or rales. CARDIAC: mild tachycardia, regular rhythm, no rubs, murmurs or gallops. ABDOMEN: Soft, nontender, nondistended, bowel sounds normal. BACK: No CVA tenderness. EXTREMITIES: No trauma. No edema. Range of motion is normal throughout. NEURO: Alert and oriented, grossly nonfocal. SKIN: Warm and dry, no rash. PSYCHIATRIC: Normal mentation, no agitation. - Personal History LMP (Females 10-55): IUD In Place - Medical/Surgical History Hx Asthma: No Hx Chronic Respiratory Disease: No Hx Diabetes: No Hx Cardiac Disease: No Hx Renal Disease: No Hx Cirrhosis: No Hx Alcoholism: No Hx HIV/AIDS: No Hx Splenectomy or Spleen Trauma: No Other PMH: med hx-H pylori 2000, GERD. Surg Csecton 2013 - Social History Smoking Status: Never smoked Constitutional: Initial Vital Signs Temperature (C) 37.4 C 07/12/16 11:28 Heart Rate 103 H 07/12/16 11:28 Respiratory Rate 16 07/12/16 11:28 Blood Pressure 141/86 H 07/12/16 11:28 O2 Sat (%) 95 07/12/16 11:28 O2 Delivery Mode Room Air Allergies/Adverse Reactions: No Known Allergies Allergy (Verified 07/12/16 11:27) Home Medications: Medication Instructions Recorded AZITHROMYCIN [Z-PACK] 250 - 500 mg PO DAILY #6 tab 07/12/16 MIRE[place] 07/12/16 Medical Decision Making - Diagnostics EKG Interpretation: 12-LEAD EKG: Please see the full report in [facility]. My interpretation: [ ] Imaging Results: Xray: Chest x-ray was obtained. I viewed the images myself on the PACS system. My interpretation of the images is: Perihilar, peribronchial fullness. The radiology interpretation is: Pending. I discussed the results with the patient. Imaging: I viewed and interpreted images myself ED Course/Re-evaluation: 26-year-old female with primary complaint of lightheadedness, dizziness, nausea , intermittent palpitations, and some shortness of breath. Evaluation the emergency department included a EKG with normal sinus rhythm, pulse oximeter 97%, chest x-ray demonstrating peribronchial fullness, negative D -dimer, normal chemistries, and negative test. Patient will be placed on azithromycin. She is feeling much improved with her L of normal saline. Differential Diagnosis: Differential diagnoses for the patient's symptom complex was considered including but not limited to electrolyte abnormalities, , dehydration, pulmonary embolism, bronchitis, pneumonia. - Data Points Laboratory Results: Laboratory Results 07/12/16 12:12 07/12/16 12:12 07/12/16 07/12/16 07/12/16 12:12 12:12 12:12 WBC RBC Hgb Hct MCV MCH MCHC RDW Plt Count MPV Neut % (Auto) Lymph % (Auto) [place] % (Auto) Eos % (Auto) Baso % (Auto) Nucleat RBC Rel Count Absolute Neuts (auto) Absolute Lymphs (auto) Absolute Monos (auto) Absolute Eos (auto) Absolute Basos (auto) Absolute Nucleated RBC Immature Gran % Immature Gran # D-Dimer < 0.27 ug/mLFEU ug/mLFEU (0.00-0.50) Sodium 140 mEq/L mEq/L (134-144) Potassium 3.7 mEq/L mEq/L (3.5-5.2) Chloride 100 mEq/L mEq/L (97-110) Carbon Dioxide 25 mEq/l mEq/l (22-31) Anion Gap 15 mEq/L mEq/L (8-16) BUN 10 mg/dL mg/dL (7-23) Creatinine 0.6 mg/dL mg/dL (0.6-1.0) Estimated GFR > 60 Glucose 95 mg/dL mg/dL (70-100) Calcium 9.3 mg/dL mg/dL (8.5-10.4) Beta HCG, Qual NEGATIVE 07/12/16 12:12 WBC 10.17 10^3/uL H 10^3/uL (3.80-9.50) RBC 4.65 10^6/uL 10^6/uL (4.18-5.33) Hgb 14.2 g/dL g/dL (12.6-16.3) Hct 41.2 % % (38.0-47.0) MCV 88.6 fL fL (81.5-99.8) MCH 30.5 pg pg (27.9-34.1) MCHC 34.5 g/dL g/dL (32.4-36.7) RDW 13.6 % % (11.5-15.2) Plt Count 276 10^3/uL 10^3/uL (150-400) MPV 10.1 fL fL (8.7-11.7) Neut % (Auto) 72.1 % % (39.3-74.2) Lymph % (Auto) 21.2 % % (15.0-45.0) [place] % (Auto) 4.8 % % (4.5-13.0) Eos % (Auto) 0.8 % % (0.6-7.6) Baso % (Auto) 0.6 % % (0.3-1.7) Nucleat RBC Rel Count 0.0 % % (0.0-0.2) Absolute Neuts (auto) 7.33 10^3/uL H 10^3/uL (1.70-6.50) Absolute Lymphs (auto) 2.16 10^3/uL 10^3/uL (1.00-3.00) Absolute Monos (auto) 0.49 10^3/uL 10^3/uL (0.30-0.80) Absolute Eos (auto) 0.08 10^3/uL 10^3/uL (0.03-0.40) Absolute Basos (auto) 0.06 10^3/uL 10^3/uL (0.02-0.10) Absolute Nucleated RBC 0.00 10^3/uL 10^3/uL (0-0.01) Immature Gran % 0.5 % % (0.0-1.1) Immature Gran # 0.05 10^3/uL 10^3/uL (0.00-0.10) D-Dimer Sodium Potassium Chloride Carbon Dioxide Anion Gap BUN Creatinine Estimated GFR Glucose Calcium Beta HCG, Qual Medications Given: Discontinued Medications Sodium Chloride (Ns) 1,000 mls @ 0 mls/hr IV ONCE ONE PRN Reason: Wide Open Stop: 07/12/16 11:37 Last Admin: 07/12/16 12:04 Dose: 1,000 mls Departure - Departure Disposition: Home, Routine, Self-Care Clinical Impression: Bronchitis, Lightheadedness Condition: Good Instructions: Acute Bronchitis (ED), Lightheadedness (ED) Additional Instructions: Please drink plenty of fluid. Please get plenty of rest. Take antibiotic as directed. Follow up with her primary care physician or return to the emergency department if you're not improving as expected in the next several days. Be seen urgently if you develop severe chest pain, fainting, vomiting, irregular heart rate, or other concerns Referrals: NONE *PRIMARY CARE P,. [Unknown] - As per Instructions Randy Avina MD [Medical Doctor] - As per Instructions Prescriptions: AZITHROMYCIN [Z-PACK] 250 - 500 mg PO DAILY #6 tab
--- NOTE | 2016-07-12 11:57 | CPEKG ---
Heart Rate: 85 RR Interval: 706 P-R Interval: 132 QRSD Interval: 78 QT Interval: 364 QTC Interval: 433 P [place]: -17 QRS [place]: 50 T Wave [place]: 24 EKG Severity - NORMAL ECG - EKG Impression: SINUS RHYTHM Electronically Signed By: Josselyn Das 12-Jul-2016 14:10:40
[2016-07-12 12:19] LABS: % IMMATURE GRANULYOCYTES 0.5 % (0.0-1.1); ABSOLUTE IMMATURE GRANULOCYTES 0.05 10^3/uL (0.00-0.10); ADD DIFF? NO; ADD MORPH? NO; ADD SCAN? NO; ATYPICAL LYMPHOCYTE FLAG 10 (0-99); FRAGMENT RBC FLAG 0 (0-99); HEMATOCRIT 41.2 % (38.0-47.0); HEMOGLOBIN 14.2 g/dL (12.6-16.3); LEFT SHIFT FLG 0 (0-99); LIPEMIA HEMOLYSIS FLAG 90 (0-99); MEAN CELL HEMOGLOBIN 30.5 pg (27.9-34.1); MEAN CELL HEMOGLOBIN CONCENTR. 34.5 g/dL (32.4-36.7); MEAN CELL VOLUME 88.6 fL (81.5-99.8); MEAN PLATELET VOLUME 10.1 fL (8.7-11.7); PLATELET CLUMPS FLAG 0 (0-99); PLATELET COUNT 276 10^3/uL (150-400); RED BLOOD CELL COUNT 4.65 10^6/uL (4.18-5.33); RED CELL DISTRIBUTION WIDTH 13.6 % (11.5-15.2)
[2016-07-12 12:33] LABS: ANION GAP 15 mEq/L (8-16); CALCIUM 9.3 mg/dL (8.5-10.4); CARBON DIOXIDE 25 mEq/l (22-31); CHLORIDE 100 mEq/L (97-110); CREATININE 0.6 mg/dL (0.6-1.0); GLOMERULAR FILTRATION RATE > 60; GLUCOSE 95 mg/dL (70-100); POTASSIUM 3.7 mEq/L (3.5-5.2); SODIUM 140 mEq/L (134-144)
[2016-07-12 13:38] VITALS: BP 117/67; PULSE 74; RESP 16; TEMP 98.4; O2SAT 96
== END 2016-07-12 13:26 | disposition home or self-care (01) ==
LOC: CED 11:23
DX: R42 Dizziness and giddiness (principal); J20.9 Acute bronchitis, unspecified
CPT/HCPCS: 71020-PO; 80048-PO; 84703-PO; 85025-PO; 85378-PO

== ENCOUNTER 2017-02-14 09:00 | Emergency (ER) | payer MEDICAID ==
[2017-02-14 09:10] VITALS: TEMP 98.2; O2SAT 96
--- NOTE | 2017-02-14 09:25 | EDPHY ---
H & P Stated Complaint: left knee pain Time Seen by Provider: 02/14/17 09:05 HPI/ROS: Chief Complaint: Left knee pain HPI: 26-year-old woman twisted her knee at work several days ago. That afternoon she went to a [employer] class. She has been having pain in her left knee since. She has been able ambulate. No prior injuries to that knee in the past. No numbness or weakness. ROS: 10 point Review of Systems is negative except as noted in the HPI. PMH: None Physical Exam: General: Awake, alert, no acute distress Left leg: Left hip is nontender, full range without pain. Left knee: She has got tenderness along the medial collateral ligament. She got moderate tenderness with straining of that ligament. She has got no patellar tenderness. She is able to flex past 90. She has no anterior drawer sign. There is no pain of loading the medial or lateral meniscus. There is no lateral knee tenderness. She has no calf tenderness. She has 2+ dorsalis pedis pulses. Capillary refills less than 2 sec. Skin: No rash - Personal History LMP (Females 10-55): IUD In Place Current Tetanus Diphtheria and Acellular Pertussis (TDAP): Yes - Medical/Surgical History Hx Asthma: No Hx Chronic Respiratory Disease: No Hx Diabetes: No Hx Cardiac Disease: No Hx Renal Disease: No Hx Cirrhosis: No Hx Alcoholism: No Hx HIV/AIDS: No Hx Splenectomy or Spleen Trauma: No Other PMH: med hx-H pylori 2000, GERD. Surg Csecton 2012 - Social History Smoking Status: Never smoked Constitutional: Initial Vital Signs Temperature (C) 36.8 C 02/14/17 09:07 Heart Rate 55 L 02/14/17 09:07 Respiratory Rate 14 02/14/17 09:07 Blood Pressure 110/61 02/14/17 09:07 O2 Sat (%) 96 02/14/17 09:07 O2 Delivery Mode Room Air Allergies/Adverse Reactions: No Known Allergies Allergy (Verified 02/14/17 09:06) Home Medications: Medication Instructions Recorded [place] 07/12/16 Departure - Departure Disposition: Home, Routine, Self-Care Clinical Impression: Knee sprain Condition: Good Instructions: Knee Sprain (ED) Additional Instructions: Alternate acetaminophen (1000 mg) with ibuprofen (400 mg) every 4 hours as needed for aches or pains. Apply ice for 15 min every 2-3 hours while awake. You may use a knee brace as needed for pain. Follow up with primary care physician in about a week if symptoms are not improving. Referrals: [facility] [Other] - As per Instructions
[2017-02-14 11:13] VITALS: BP 112/68; PULSE 60; RESP 16
== END 2017-02-14 10:30 | disposition home or self-care (01) ==
LOC: CED 09:00
DX: S83.92XA Sprain of unspecified site of left knee, initial encounter (principal); X58.XXXA Exposure to other specified factors, initial encounter; Y92.69 Other specified industrial and construction area as the place of occurrence of the external cause
CPT/HCPCS: 73564-PO